=== PATIENT | male | born 1960 | race Caucasian/White ===

== ENCOUNTER 2017-03-08 17:12 | Emergency (ER) | payer MEDICAID, MEDICARE, SELFPAY ==
--- NOTE | 2017-03-08 17:46 | Emergency Department Record ---
History of Present Illness - General Chief Complaint: Fall Injury Stated Complaint: FALL Time Seen by Provider: 03/08/17 17:34 Source: Patient, EMS Mode of Arrival: EMS - History of Present Illness Initial Comments: fall on the ice outside and landed on his cell phone under the right rib cage. patient presented via ambulance. 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 MD Complaint: Fall Onset/Timin -: Minutes(s) Fall From: Other When Fall Occurred: Just prior to arrival Fall Witnessed: No Place Fall Occurred: Home, Street Loss of Consciousness: None Prolonged Down Time?: No Symptoms Prior to Fall: None Location: Other Severity: Moderate Severity scale (1-10): 4 Associated Symptoms: Denies - Related Data Home Medications Medication Instructions Recorded Confirmed Last Taken Allopurinol 300 mg PO DAILY 03/08/17 03/08/17 Unknown Ascorbic Acid [Vitamin C] 500 mg PO DAILY 03/08/17 03/08/17 Unknown Aspirin [Ecotrin] 325 mg PO DAILY 03/08/17 03/08/17 Unknown Captopril [Capoten] 50 mg PO DAILY 03/08/17 03/08/17 Unknown Carvedilol [Carvedilol] 25 mg PO BID 03/08/17 03/08/17 Unknown Cetirizine HCl 10 mg PO DAILY 03/08/17 03/08/17 Unknown Furosemide [Lasix] 40 mg PO DAILY 03/08/17 03/08/17 Unknown Glipizide 10 mg PO DAILY 03/08/17 03/08/17 Unknown Lisinopril 40 mg PO DAILY 03/08/17 03/08/17 Unknown Metformin HCl 2,000 mg PO BID 03/08/17 03/08/17 Unknown Metolazone [Zaroxolyn] 2.5 mg PO DAILY 03/08/17 03/08/17 Unknown Naproxen [Naprosyn] 500 mg PO BID 03/08/17 03/08/17 Unknown Potassium Chloride 10 meq PO DAILY 03/08/17 03/08/17 Unknown Pravastatin Sodium [Pravachol] 40 mg PO DAILY 03/08/17 03/08/17 Unknown Ranitidine HCl 150 mg PO DAILY 03/08/17 03/08/17 Unknown Previous Rx's Medication Instructions Recorded Hydrocodone/Acetaminophen [[place] 1 each PO Q6HR #14 tablet 03/08/17 5-325 Tablet] Allergies Allergy/AdvReac Type Severity Reaction Status Date / Time No Known Drug Allergies Allergy Verified 03/06/14 20:27 Travel Screening - Travel/Exposure Within Last 30 Days Have you traveled within the last 30 days?: No Review of Systems Reviewed: No additional complaints except as noted below Constitutional: Reports: As per HPI. Denies: Chills, Fever, Malaise, Night sweats, Weakness, Weight change Eyes: Reports: As per HPI. Denies: Eye discharge, Eye pain, Photophobia, Vision change ENT: Reports: As per HPI. Denies: Congestion, Dental pain, Ear pain, Epistaxis , Hearing loss, Throat pain Respiratory: Reports: As per HPI. Denies: Cough, Dyspnea, Hemoptysis, Stridor, Wheezes Cardiovascular: Reports: As per HPI. Denies: Arrhythmia, Chest pain, Dyspnea on exertion, Edema, Murmurs, Orthopnea, Palpitations, Paroxysmal nocturnal dyspnea, Rheumatic Fever, Syncope Endocrine: Reports: As per HPI. Denies: Fatigue, Heat or cold intolerance, Polydipsia, Polyuria Gastrointestinal: Reports: As per HPI. Denies: Abdominal pain, Constipation, Diarrhea, Hematemesis, Hematochezia, Melena, Nausea, Vomiting Genitourinary: Reports: As per HPI. Denies: Dysuria, Frequency, Hematuria, Incontinence, Retention, Testicular pain, Testicular mass, Urgency Musculoskeletal: Reports: As per HPI, Other (right chest wall pain). Denies: Arthralgia, Back pain, Gout, Joint swelling, Myalgia, Neck pain Skin: Reports: As per HPI. Denies: Bruising, Change in color, Change in hair/ nails, Lesions, Pruritus, Rash Neurological: Reports: As per HPI. Denies: Abnormal gait, Confusion, Headache, Numbness, Paresthesias, Seizure, Tingling, Tremors, Vertigo, Weakness Psychiatric: Reports: As per HPI. Denies: Anxiety, Auditory hallucinations, Depression, Homicidal thoughts, Suicidal thoughts, Visual hallucinations Hematological/Lymphatic: Reports: As per HPI. Denies: Anemia, Blood Clots, Easy bleeding, Easy bruising, Swollen glands Past Medical History - SOCIAL HISTORY Smoking Status: Former smoker Alcohol Use: None Drug Use: None - RESPIRATORY Hx Respiratory Disorders: Yes Hx Sleep Apnea: Yes Hx of CPAP: Yes - CARDIOVASCULAR Hx Cardio Disorders: Yes Hx Abnormal EKG: Yes Hx Cardiac Cath: Yes Hx CHF: Yes Hx Heart Attack: Yes Hx Hypertension: Yes Hx Pacemaker/Defib: Yes - NEURO Hx Neuro Disorders: No - GI Hx GI Disorders: Yes Hx Reflux: Yes - Hx Genitourinary Disorders: No - ENDOCRINE Hx Endocrine Disorders: Yes Hx Diabetes: Yes - MUSCULOSKELETAL Hx Musculoskeletal Disorders: Yes Hx Back Injury: Yes (fx T12-L1) - PSYCH Hx Psych Problems: Yes Hx Depression: Yes - HEMATOLOGY/ONCOLOGY Hx Hematology/Oncology Disorders: No Family Medical History Any Significant Family History?: Yes Hx Cancer: Mother, Brother/Sister, Grandparents Hx Diabetes: Brother/Sister Hx Heart Disease: Grandparents Hx Stroke: Father Physical Exam - General General Appearance: Alert, Oriented x3, Cooperative, Mild distress - Head Head exam: Normal inspection - Eye Eye exam: Normal appearance, PERRL Pupils: Normal accommodation - ENT ENT exam: Normal exam, Mucous membranes moist, Normal external ear exam, Normal orophraynx, TM's normal bilaterally Ear exam: Normal external inspection. negative: External canal tenderness Nasal Exam: Normal inspection. negative: Discharge, Sinus tenderness Mouth exam: Normal external inspection, Tongue normal Teeth exam: Normal inspection. negative: Dental caries Throat exam: Normal inspection. negative: Tonsillar erythema, Tonsillar exudate - Neck Neck exam: Normal inspection, Full ROM. negative: Tenderness - Respiratory Respiratory exam: Normal lung sounds bilaterally. negative: Respiratory distress - Cardiovascular Cardiovascular Exam: Regular rate, Normal rhythm, Normal heart sounds - GI/Abdominal GI/Abdominal exam: Soft, Normal bowel sounds, Tenderness (right upper quad apin) - Rectal Rectal exam: Deferred - exam: Deferred - Extremities Extremities exam: Normal inspection, Full ROM, Normal capillary refill. negative: Tenderness - Back Back exam: Reports: Normal inspection, Full ROM. Denies: Muscle spasm, Rash noted, Tenderness - Neurological Neurological exam: Alert, Normal gait, Oriented X3, Reflexes normal - Psychiatric Psychiatric exam: Normal affect, Normal mood - Skin Skin exam: Dry, Intact, Normal color, Warm Course Vital Signs 03/08/17 17:17 Temperature 97.8 F Pulse Rate 89 Respiratory 16 Rate Blood Pressure 132/98 Pulse Ox 94 L - Reevaluation(s) Reevaluation #1: discussed case with [place] Surgeon at [facility] Dr. Arroyo and ED physician Dr. Man and will transfer to [facility] ED to get an evaluation by the Trauma service. 03/08/17 20:31 Reevaluation #2: Discussed case with Dr. Arroyo and Dr. Man and will transfer by ambulance. 03/08/17 20:34 Medical Decision Making - Data Complexity MDM Data: Labs Ordered and/or Reviewed, X-Ray Ordered and/or Reviewed (round lesion posterior liver could be a bleed and anasarca) - Lab Data Result diagrams: 03/08/17 17:45 03/08/17 17:45 Disposition Clinical Impression: Contusion of chest Qualifiers: Encounter type: initial encounter Laterality: right Qualified Code(s): S20.211A - Contusion of right front wall of thorax, initial encounter Traumatic hemorrhage of liver Qualifiers: Encounter type: initial encounter Qualified Code(s): S36.118A - Other injury of liver, initial encounter Disposition: Acute Care Hospital Transfer Condition: (2) Stable Additional Instructions: transfer to [facility] via ambulance Prescriptions: Hydrocodone/Acetaminophen [Man[place] 5-325 Tablet] 1 each PO Q6HR #14 tablet Forms: Patient Portal Access Time of Disposition: 19:49 Quality - Quality Measures Quality Measures: N/A - Blood Pressure Screening Does Patient Have Any of the Following: No, Active Dx of HTN Blood Pressure Classification: Hypertensive Reading Systolic Measurement: 132 Diastolic Measurement: 98 Screening for High Blood Pressure: Patient Exclusion, Hx of HTN [[id number]]
[2017-03-08 17:55] LABS: HEMATOCRIT 41.1 % (42.0-52.0); MEAN CELL VOLUME 93.6 fl (81-97); MEAN CORPUSCULAR HEMOGLOBIN 29.6 pg (27-33); MEAN CORPUSCULAR HGB CONC 31.6 g/dl (32-36); MEAN PLATELET VOLUME 12.3 fl (7.4-10.4); PLATELET COUNT 189 K/uL (130-400); RED BLOOD COUNT 4.39 M/uL (4.40-5.70); RED CELL DISTRIBUTION WIDTH 16.1 % (11.5-14.5); WHITE BLOOD COUNT W/O DIFF 7.4 K/uL (4.2-12.2)
[2017-03-08 18:11] LABS: PLATELET ESTIMATE NORMAL (NORMAL)
[2017-03-08 18:27] LABS: BILIRUBIN,TOTAL 0.9 mg/dL (0.2-1.0); CREATININE 1.7 mg/dL (0.7-1.2)
[2017-03-08 18:32] LABS: BILIRUBIN,DIRECT 0.2 mg/dL (0-0.3)
[2017-03-08] MEDS: Diph,Pert(Acell),Tet Vac 0.5 ML SYR IM ONE (19:34)
[2017-03-08 19:41] LABS: URINE APPEARANCE CLEAR; URINE BILIRUBIN NEGATIVE (NEGATIVE); URINE BLOOD SMALL (NEGATIVE); URINE COLOR YELLOW; URINE KETONE NEGATIVE (NEGATIVE); URINE LEUKOCYTE ESTERASE NEGATIVE (NEGATIVE); URINE NITRITE NEGATIVE (NEGATIVE); URINE UROBILINOGEN 0.2 E.U./dL (0.20 - 1.00)
[2017-03-08 19:43] LABS: URINE BACTERIA NONE SEEN; URINE EPITHELIAL CELLS 0 - 2 (FEW); URINE WBC 0 - 2 (0-2/hpf)
[2017-03-08 20:47] LABS: INR 1.05; PARTIAL THROMBOPLASTIN TIME 26.3 SECONDS (24.5-39.1); PROTHROMBIN TIME (PATIENT) 11.3 SECONDS (9.5-12.1)
--- NOTE | 2017-03-09 19:39 | CT SCAN REPORT ---
EXAM: CT SCAN ABDOMEN/PELVIS WO CONTRAST HISTORY: FALL WITH TRAUMA TO RIGHT CHEST WALL. RIGHT LATERAL RIB PAIN. TECHNIQUE: Routine helical CT examination of the chest, abdomen, and pelvis is performed without intravenous contrast administration after the oral administration of contrast. Please see separate CT chest report. COMPARISON: No prior imaging of the abdomen and pelvis available for comparison. FINDINGS: There is a small dependent left basilar pleural effusion. There is minor dependent atelectasis suggested in each lung base. The lung bases are otherwise clear. No pneumothorax. The heart is enlarged. An intracardiac pacer is in place with lead tips in the right atrium, right ventricle, and coronary sinus. Immediately adjacent/contiguous with the posterior margin of the high right liver lobe is a rounded 1.7 cm structure slightly hyperdense to liver parenchyma with a density measuring 62 Hounsfield Units, while that of liver parenchyma of 54 Hounsfield Units. There is a small amount of fluid interposed between this structure and the liver. The etiology of this is uncertain. This could represent a small focus of hemorrhage. A solid mass is less likely. The liver is otherwise normal in appearance. The spleen, pancreas, and adrenal glands are normal in appearance. A couple 2 mm nonobstructing calculi are noted within the left kidney, one in the mid to upper region and one in the lower pole. The kidneys are otherwise normal in appearance without evidence of obstructive uropathy. A few tiny gallstones are questioned in the nondependent gallbladder lumen. The gallbladder is otherwise unremarkable and no biliary ductal dilatation is seen. No intraabdominal nor retroperitoneal lymphadenopathy identified. There is mild diffuse atherosclerosis. There is focal ectasia/outpouching of the proximal infrarenal abdominal aorta anteriorly with a diameter of 2.2 cm, while slightly more proximally there is a diameter of 1.9 cm. There is otherwise no evidence of ectasia/aneurysm. There is moderate distention of the urinary bladder without focal wall abnormality visualized. No pelvic mass, lymphadenopathy, or free pelvic fluid. No gross bowel dilatation nor bowel wall thickening. The appendix is visualized and normal in appearance. There is minimal retroperitoneal fat stranding in the iliopsoas regions, probably chronic. There is a nonenlarged left external iliac chain lymph node visualized measuring 9 mm in short axis diameter. There is diverticulosis of the left colon, mild in degree without gross diverticulitis. Apparent borderline to mild wall thickening of the distal colon and rectum likely relates to incomplete distention rather than a mucosal abnormality. There is a small fat-filled umbilical hernia with a small amount of fluid within. There is mild diffuse subcutaneous edema consistent with mild anasarca. No acute fracture nor destructive bone lesion. There are degenerative changes scattered throughout the visualized spine. IMPRESSION: 1. SMALL DEPENDENT LEFT BASILAR PLEURAL EFFUSION. 2. A 1.7 CM ROUND STRUCTURE ADJACENT TO THE HIGH POSTERIOR ASPECT OF THE RIGHT LIVER LOBE SLIGHTLY HYPERDENSE WITH A SMALL AMOUNT OF FLUID INTERVENING BETWEEN THIS AND THE LIVER. THE ETIOLOGY OF THIS IS UNCERTAIN. A SMALL FOCUS OF HEMORRHAGE COULD HAVE THIS APPEARANCE. A SMALL SOLID MASS CANNOT BE EXCLUDED , HOWEVER. 3. LEFT NEPHROLITHIASIS. 4. MILD COLONIC DIVERTICULOSIS WITHOUT DIVERTICULITIS. 5. MILD ANASARCA. 6. SMALL UMBILICAL HERNIA CONTAINING FAT AND A SMALL AMOUNT OF FLUID. JOB NUMBER: [id number] MTDD
--- NOTE | 2017-03-09 20:01 | CT SCAN REPORT ---
EXAM: CT SCAN CHEST WO CONTRAST HISTORY: RIGHT RIB PAIN POST FALL. TECHNIQUE: Helical CT examination of the chest is performed without intravenous contrast administration. COMPARISON: Two-view chest radiographic examination dated 01/06/2012. FINDINGS: Post median sternotomy changes are identified. The heart is enlarged. There is diffuse atherosclerosis of the [place] coronary arteries. A triple-lead transvenous cardiac stimulator is in place via the left subclavian approach with lead tips in the right atrium, right ventricle, and coronary sinus. There is mild atherosclerosis of the thoracic aorta without gross aneurysmal dilatation. The ascending thoracic aorta at the level of the right main pulmonary artery measures 3.9 cm. No mediastinal or hilar mass/lymphadenopathy is seen. A small dependent left pleural effusion is present. Minor linear scarring vs. atelectasis is scattered within the lung bases and there is minimal dependent atelectasis in each lung. No definite right pleural effusion. No pericardial effusion. No pneumothorax. No definite acute osseous fracture. There are degenerative changes scattered throughout the visualized spine and there is accentuation of the normal thoracic kyphosis. IMPRESSION: 1. NO DEFINITE ACUTE OSSEOUS FRACTURE. 2. POST MEDIAN STERNOTOMY. CARDIOMEGALY. 3. SMALL DEPENDENT LEFT BASILAR PLEURAL EFFUSION ASSOCIATED WITH MINOR BIBASILAR ATELECTASIS. 4. MULTI-LEAD TRANSVENOUS CARDIAC STIMULATOR IN PLACE. 5. NOT MENTIONED ABOVE IS A 1.7 CM NODULAR STRUCTURE ADJACENT TO THE POSTERIOR/ SUPERIOR MARGIN OF THE LIVER SLIGHTLY HYPERDENSE TO LIVER WITH A SMALL AMOUNT OF INTERVENING FLUID. WHILE THIS MAY REPRESENT A SMALL FOCUS OF HEMORRHAGE, A SOLID NODULE CANNOT BE EXCLUDED. JOB NUMBER: [id number] MTDD
== END 2017-03-08 21:07 | disposition short-term general hospital (02) ==
LOC: ER 17:12
DX: S36.113A Laceration of liver, unspecified degree, initial encounter (principal); S20.211A Contusion of right front wall of thorax, initial encounter; E11.9 Type 2 diabetes mellitus without complications; I50.9 Heart failure, unspecified; I10 Essential (primary) hypertension; I25.2 Old myocardial infarction; W00.0XXA Fall on same level due to ice and snow, initial encounter; Y92.008 Other place in unspecified non-institutional (private) residence as the place of occurrence of the external cause; Z79.84 Long term (current) use of oral hypoglycemic drugs; Z87.891 Personal history of nicotine dependence
CPT/HCPCS: 71250; 74176; 80048; 80076; 81001; 83690; 85027; 85610; 85730; 90715; 93005; 93010; 96372; 99285